=== PATIENT | female | born 1970 | race Caucasian/White ===

== ENCOUNTER 2019-06-24 12:23 | Emergency (ER) | payer OTHER ==
[~2019-06-24] VITALS: Ht 165.1 cm; Wt 55.3 kg
[2019-06-24 13:14] VITALS: BP 112/71
[2019-06-24] MEDS ORDERED: ALBUTEROL FS 2.5 MG/3 ML VIAL.NEB NEB ONE (13:30)
[2019-06-24] MEDS ORDERED: BENZONATATE 100 MG CAPSULE PO PRN (13:30)
[2019-06-24] MEDS ORDERED: predniSONE 20 MG TABLET PO ONE (13:30)
[2019-06-24] MEDS ORDERED: IPRATROPIUM NEB FS 0.5 MG/2.5 ML AMPUL.NEB NEB ONE (13:30)
[2019-06-24] MEDS ORDERED: predniSONE 20 MG TABLET ONE (13:36)
--- NOTE | 2019-06-24 13:50 | NUR ---
called rt for treatment
[2019-06-24] MEDS ORDERED: IPRATROPIUM NEB FS 0.5 MG/2.5 ML AMPUL.NEB ONE (14:19)
[2019-06-24] MEDS ORDERED: ALBUTEROL FS 2.5 MG/3 ML VIAL.NEB ONE ×2 (14:19→14:22)
--- NOTE | 2019-06-24 15:28 | NUR ---
Patient discharged to home in stable condition. Written and verbal after care instructions given. Patient verbalizes understanding of instruction.
== END 2019-06-24 15:28 | disposition home or self-care (01) ==
LOC: ER 12:26
DX: J20.9 Acute bronchitis, unspecified (principal); Z60.2 Problems related to living alone
CPT/HCPCS: 71045; 94640; 99283; J7512